=== PATIENT | female | born 1990 | race Caucasian/White ===

== ENCOUNTER 2018-03-27 19:36 | Emergency (ER) | END 2018-03-28 02:38 | disposition home or self-care (01) ==

== ENCOUNTER 2018-04-21 13:46 | Emergency (ER) | END 2018-04-21 16:33 | disposition home or self-care (01) ==

== ENCOUNTER 2018-06-14 09:49 | Emergency (ER) | END 2018-06-14 11:49 | disposition home or self-care (01) ==